=== PATIENT | female | born 1995 | race Caucasian/White ===

== ENCOUNTER 2017-07-23 02:19 | Emergency (ER) | payer BC ==
[2017-07-23] MEDS ORDERED: Sulfamethox/Trimethoprim DS 800/160* TAB PO ONE (03:15)
[2017-07-23] MEDS ORDERED: Cephalexin CAP* 500 MG PO ONE (03:15)
[2017-07-23] MEDS ORDERED: Bacitracin OINTMENT* 0.5% 0.5 oz TUBE TOPICAL ONE (03:16)
--- NOTE | 2017-07-23 03:28 | ED ---
Skin Complaint - HPI Summary HPI Summary: 21F 2 days facial rash round a painful 3 distinct areas on forehead and R cheek , progressive, + exposure to other people w similar sxs. Not assoc w fevers. No prior episodes. Denies . - History of Current Complaint Chief Complaint: EDRashSkinAbscess Stated Complaint: FACIAL INJURY Pain Intensity: 0 - Allergy/Home Medications Allergies/Adverse Reactions: Allergies Allergy/AdvReac Type Severity Reaction Status Date / Time amoxicillin Allergy Rash Verified 07/23/17 02:26 PMH/Surg Hx/FS Hx/Imm Hx Previously Healthy: Yes - Immunization History Date of Influenza Vaccine: has not received Infectious Disease History: No Infectious Disease History: Denies: Traveled Outside the [place] in Last 30 Days - Social History Alcohol Use: Weekly Substance Use Type: Reports: None Smoking Status (MU): Never Smoked Tobacco Review of Systems Constitutional: Negative Eyes: Negative ENT: Negative Gastrointestinal: Negative Positive: Rash All Other Systems Reviewed And Are Negative: Yes Physical Exam - Summary Physical Exam Summary: gen: no acute distress heent: normal neck, no masses, normal mucous membranes skin: small distinct round areas of erythema with small central clearing and discharge, tender to palp, consistent with areas of cellulitis. no petechiae Vital Signs On Initial Exam: Initial Vitals Temp Pulse Resp BP Pulse Ox 36.1 C 90 16 115/65 98 07/23/17 02:26 07/23/17 02:26 07/23/17 02:26 07/23/17 02:26 07/23/17 02:26 Diagnostics - Vital Signs Vital Signs Temp Pulse Resp BP Pulse Ox 07/23/17 02:26 36.1 C 90 16 115/65 98 - Laboratory Lab Statement: Any lab studies that have been ordered have been reviewed, and results considered in the medical decision making process. Course/Dx - Diagnoses Provider Diagnoses: Cellulitis Discharge - Discharge Plan Condition: Stable Disposition: HOME Prescriptions: Bacitracin OINTMENT* 1 applic TOPICAL BID #1 tube Cephalexin CAP* [Keflex CAP*] 500 mg PO QID #40 cap Chlorhexidine Gluconate [Hibiclens] 236 ml TP DAILY #1 liquid Sulfamethox/Trimethoprim DS* [Bactrim DS 800/160 TAB*] 1 tab PO BID #20 tab Patient Education Materials: Cellulitis (ED) Referrals: No Primary Care Phys,NOPCP [Primary Care Provider] - David Xie JR, MD [Medical Doctor] - Samreen Jenkins MD [Medical Doctor] - Additional Instructions: PLEASE TAKE MEDICATIONS DIRECTED PLEASE MAKE AN APPOINTMENT FIRST THING IN THE MORNING TO BE SEEN BY A [employer] MACHINE OPERATOR WITHIN 3-4 DAYS IF NO IMPROVEMENT PLEASE RETURN IMMEDIATELY TO THE ER IF YOU HAVE ANY WORSENING OR CONCERNING SYMPTOMS PLEASE MAKE AN APPOINTMENT TO BE SEEN BY YOUR PRIMARY CARE DOCTOR WITHIN 1 WEEK
[2017-07-23 03:50] VITALS: BP 113/64
== END 2017-07-23 03:45 | disposition home or self-care (01) ==
LOC: ED 02:19
DX: L03.90 Cellulitis, unspecified (principal); R21 Rash and other nonspecific skin eruption
CPT/HCPCS: 99282; A9270-GY